=== PATIENT | female | born 1985 | race Caucasian/White ===

== ENCOUNTER 2022-02-15 06:23 | Inpatient (IN) ==
[~2022-02-15 06:23] MED LIST: ANCEF VIAL 1 GRAM IVP ONE
[2022-02-15] MEDS ORDERED: NS 100 ML IV 100 ML ONE (06:39)
[2022-02-15] MEDS ORDERED: ANCEF VIAL 1 GRAM ONE (06:39)
[2022-02-15] MEDS ORDERED: D5 1/2 NS 1,000 ML 1,000 ML IV ONE ×2 (06:41→08:19)
[2022-02-15] MEDS ORDERED: ProvayBLUE 0.5% ONE (06:42)
[2022-02-15] MEDS ORDERED: BETADINE SOLN ONE (06:43)
[2022-02-15] MEDS: D5 1/2 NS 1,000 ML 1,000 ML IV SCH ×4 (06:50→17:33)
[2022-02-15] MEDS ORDERED: DIPRIVAN VIAL 20 ML ONE ×2 (07:03→08:21)
[2022-02-15] MEDS ORDERED: PRECEDEX INJ VIAL IVP ONE (07:03)
[2022-02-15] MEDS ORDERED: BRIDION ONE (07:03)
[2022-02-15] MEDS ORDERED: OFIRMEV IV 1000 MG VIAL 1,000 MG/100 ML VIAL IV ONE (07:03)
[2022-02-15] MEDS ORDERED: XYLOCAINE 2 % (PLAIN) ONE (07:03)
[2022-02-15] MEDS ORDERED: VERSED ONE (07:04)
[2022-02-15] MEDS ORDERED: FENTANYL VIAL INJ 100 mcg ONE (07:04)
[2022-02-15] MEDS ORDERED: PEPCID 20 MG VIAL ONE (07:05)
[2022-02-15] MEDS ORDERED: ZOFRAN INJ 4 MG VIAL ONE ×2 (07:05→09:01)
[2022-02-15] MEDS ORDERED: ZEMURON 100 MG VIAL ONE (07:08)
[2022-02-15 07:24] VITALS: BMI 40.5
[2022-02-15] MEDS ORDERED: ULTANE GAS IN ONE (07:24)
[2022-02-15] MEDS ORDERED: KETAMINE HCL ONE (07:24)
[2022-02-15] MEDS ORDERED: TRANSDERM-SCOP TD ONE (07:38)
[2022-02-15] MEDS ORDERED: DECADRON INJ ONE (07:38)
[2022-02-15] MEDS ORDERED: LACRI-LUBE S.O.P. ONE (07:42)
[2022-02-15] MEDS ORDERED: EPHEDRINE SULFATE INJ ONE (08:19)
[2022-02-15] MEDS ORDERED: ROBINUL ONE (08:42)
[2022-02-15] MEDS ORDERED: BARHEMSYS INJ IVP PRN (09:10)
[2022-02-15] MEDS ORDERED: BENADRYL INJ 50 MG VIAL IVP PRN ×2 (09:10→10:32)
[2022-02-15] MEDS ORDERED: PHENERGAN INJ 25 MG IM PRN (09:10)
[2022-02-15] MEDS ORDERED: DILAUDID INJ ONE ×2 (09:37→10:06)
[2022-02-15] MEDS: DILAUDID INJ IVP PRN ×2 (10:08→10:14)
[2022-02-15] MEDS ORDERED: BARHEMSYS INJ ONE (10:09)
[2022-02-15] MEDS ORDERED: MORPHINE SULFATE PCA 30 MG IVP PRN (10:32)
[2022-02-15] MEDS ORDERED: TORADOL 30 MG VIAL IVP PRN (10:32)
[2022-02-15] MEDS: ZOFRAN INJ 4 MG VIAL IVP PRN ×2 (10:37→18:03)
[2022-02-15] MEDS ORDERED: TORADOL 30 MG VIAL ONE (10:57)
[2022-02-15] MEDS ORDERED: MYLICON TAB 80 MG CHEW PO ONE (17:39)
[2022-02-15] MEDS: MYLICON TAB 80 MG CHEW PO PRN (17:41)
[2022-02-16] MEDS: MYLICON TAB 80 MG CHEW PO PRN (02:17)
[2022-02-16] MEDS: D5 1/2 NS 1,000 ML 1,000 ML IV SCH ×5 (05:33→18:13)
[2022-02-16 05:38] LABS: BLOOD UREA NITROGEN 6 mg/dL (7-18); CHLORIDE 106 mmol/L (98-107); COR NA(FOR HYPERGLY) 139 mmol/L (136-145); SODIUM 139 mmol/L (136-145); eGFR NON BLACK RACES > 60 (>60)
[2022-02-16 05:39] LABS: BASOPHILS % (AUTO) 0.3 % (0.2-1.0); EOSINOPHILS % (AUTO) 0.1 % (0.9-2.9); HEMATOCRIT 27.1 % (36.0-47.0); HEMOGLOBIN 8.8 g/dL (12.0-16.0); LYMPHOCYTES # (AUTO) 2.5 X10^3/uL (1.3-2.9); LYMPHOCYTES % (AUTO) 21.5 % (21.0-51.0); MEAN CORPUSCULAR HEMOGLOBIN 22.4 pg (27.0-34.0); MEAN CORPUSCULAR HGB CONC 32.4 g/dL (33.0-35.0); MEAN PLATELET VOLUME 8.7 fL (7.4-11.0); MONOCYTES # (AUTO) 0.8 x10^3/uL (0.3-0.8); MONOCYTES % (AUTO) 6.6 % (0.0-13.0); NEUTROPHILS # (AUTO) 8.2 x10^3/uL (2.2-4.8); NEUTROPHILS % (AUTO) 71.5 % (42.0-75.0); RED BLOOD COUNT 3.92 X10^6/uL (3.5-5.4); RED CELL DISTRIBUTION WIDTH 16.1 % (11.6-16.5); WHITE BLOOD COUNT 11.4 X10^3/uL (3.6-10.0)
[2022-02-16 06:47] LABS: PLATELET MORPHOLOGY COMMENT NORMAL (NORMAL)
[2022-02-16 06:48] LABS: HYPOCHROMASIA 1+; MICROCYTOSIS 1+
[2022-02-16] MEDS ORDERED: MOTRIN TAB 800 MG PO PRN (07:30)
[2022-02-16] MEDS: ESTRACE PO SCH (09:12)
[2022-02-16] MEDS: COLACE CAP 100 MG PO SCH ×2 (09:13→19:59)
[2022-02-16] MEDS: ZOFRAN INJ 4 MG VIAL IVP PRN (11:54)
[2022-02-16] MEDS: PERCOCET TAB 5/325 MG PO PRN (14:19)
[2022-02-16] MEDS: BACTROBAN TOPICAL OINT TOP SCH ×2 (14:20→21:49)
[2022-02-16] MEDS: FERROUS GLUCONATE PO SCH (17:10)
[2022-02-17] MEDS: D5 1/2 NS 1,000 ML 1,000 ML IV SCH (02:09)
[2022-02-17] MEDS: BACTROBAN TOPICAL OINT TOP SCH (05:29)
[2022-02-17] MEDS: FERROUS GLUCONATE PO SCH (06:03)
[2022-02-17] MEDS: MYLICON TAB 80 MG CHEW PO PRN (07:54)
[2022-02-17] MEDS: COLACE CAP 100 MG PO SCH (07:59)
[2022-02-17] MEDS: ESTRACE PO SCH (07:59)
[2022-02-17 08:35] VITALS: BP 121/61
[2022-02-17] MEDS: PERCOCET TAB 5/325 MG PO PRN (09:01)
== END 2022-02-17 10:20 | disposition home or self-care (01) | DRG 743 ==
LOC: OBS 06:23 → EDUNIT# 07:30 → MED/SURG 11:55
PROVIDERS: ADMIT Specialist; ATTEND Specialist
DX: Z20.822 Contact with and (suspected) exposure to COVID-19; N92.5 Other specified irregular menstruation; R79.89 Other specified abnormal findings of blood chemistry; R10.2 Pelvic and perineal pain; N94.6 Dysmenorrhea, unspecified; R82.998 Other abnormal findings in urine; Z01.812 Encounter for preprocedural laboratory examination; Z01.818 Encounter for other preprocedural examination